=== PATIENT | male | born 1970 | race Caucasian/White ===

== ENCOUNTER → 2016-09-04 | Outpatient (CLI) | payer MEDICAID ==
[~2016-09-04] MED LIST: ALPR.5 PO; BLOOD PRESSURE CUFF; CENTTAB8 PO; DAND1SHA3 TOPICAL; EMTR1TAB5 PO; FLUT1SPR22; FOSA PO; GABA300C5 PO; GLUCOMTESTSTRIPS; GUAI400T8 PO; Glucometer; KETO1DRO7 EACH EYE; LEVA500T PO; LISI-586 PO; LISI10TA3 PO; Lancets; MOBI7.5T PO; NORC5TAB PO; OMEP40CA2 PO; PHEN10TA PO; RITO100 PO; ZYRT10CA PO; [UNRECOGNIZED DRUG - CODE]; [UNRECOGNIZED DRUG - CODE] TOP
--- NOTE | 2016-09-06 09:03 | HM ---
Date Performed: 09/04/2016 Time Performed: 09:38:00 HOOKUP DATE: 09/04/16 09:38:00 AM Monica ANALYSIS START TIME: 09/04/2016 9:43:00 AM ANALYSIS END TIME: 09/05/2016 8:36:41 AM PATIENT AGE: 46 PATIENT HEIGHT PATIENT WEIGHT DRUG LIST PATIENT DIAGNOSIS: PALPITATIONS TEST NARRATIVE: The patient's average heart rate was 64 BPM. No episodes of tachycardia wer e noted. Heart rates less than 50 BPM were noted 23% of the time. No pauses exceeding 2.0 second s were noted. 1 ventricular ectopics, which represented < 1% of the total beat count, were noted. The highest ventricular ectopic frequency occurred from 05:00 AM to 06:00 AM Fri. During this time 1 VE(s) occurred. Ventricular ectopics were observed as 1 isolated beat(s) only. No couplets or ru ns were noted. 1 supraventricular ectopics, which represented < 1% of the total beat count, were noted. The highest supraventricular ectopic frequency occurred from 09:00 PM to 10:00 PM Monica. Durin g this time 1 SVE(s) occurred. Multiple episodes of ST depression (defined as -1.0 mm or more) w ere noted in channel 1. The maximum depression of -2.0 mm occurred at 01:58:57 PM Monica. Multiple epi sodes of ST depression (defined as -1.0 mm or more) were noted in channel 2. The maximum depression of -2.6 mm occurred at 09:43:32 PM Monica. No episodes of ST depression (defined as -1.0 mm or more) w ere noted in channel 3. No diary entries were made by the patient. TEST INTERPRETATION: Agree with the narrative as. Patient has sinus bradycardia in the low-to-mi d- 40's intermittedly during sleeping hours. Heart rate maximum is 114, which is Sinus rhythm . Only one ventricular ectopic beat and one premature atrial beat are seen in the entire holter monit or tracing. No diary entries were placed. Overall, this is a very benign appearing holter monitor wi th no significant tachy or joel arrhythmias other than sinus bradycardia. Signed by : Holger Anders
== END ==
LOC: HCAV 09:18
PROVIDERS: ATTEND Family Medicine
DX: R00.2 Palpitations (principal)
CPT/HCPCS: 93225; 93226